=== PATIENT | male | born 1990 | race Two or more races ===

== ENCOUNTER 2023-07-19 13:15 | Emergency (ER) | payer BC ==
[~2023-07-19] VITALS: Ht 177.8 cm; Wt 87.1 kg
[2023-07-19] MEDS ORDERED: methylPREDNISolone SOD SUCC 40 MG/ML VL IM ONE (14:00)
[2023-07-19] MEDS ORDERED: IPRATROPIUM BROM 0.5 MG/2.5ML INH SOL NEB ONE (14:00)
[2023-07-19] MEDS ORDERED: ALBUTEROL SULF 2.5 MG/0.5ML(0.5%) NEB SOLN NEB ONE (14:00)
[2023-07-19 14:03] VITALS: BP 122/83; PULSE 90; RESP 18; O2SAT 97
[2023-07-19] MEDS ORDERED: methylPREDNISolone SOD SUCC 40 MG/ML VL ONE (14:09)
[2023-07-19 14:20] VITALS: RESP 18; O2SAT 97
== END 2023-07-19 14:58 | disposition home or self-care (01) ==
LOC: ER 13:15
DX: J45.901 Unspecified asthma with (acute) exacerbation (principal)
CPT/HCPCS: 94640; 96372; 99283; J2920; J7644